=== PATIENT | male | born 1990 | race Caucasian/White ===

== ENCOUNTER 2025-09-29 22:00 | Emergency (ER) | payer SELFPAY ==
[2025-09-29 22:06] VITALS: BP 135/79; PULSE 76; RESP 16; TEMP 36.8; O2SAT 98; BMI 25.1
[2025-09-30 03:13] LABS: Hematocrit 44.8 % (37-53); Hemoglobin 15.00 g/dL (11.27-16.99); Mean Corpuscular HGB Conc 33.5 g/dL (30-55); Mean Corpuscular Hemoglobin 30.1 pg (27-33); Mean Corpuscular Volume 89.8 fl (82-101); Nucleated Red Blood Cells % 0 %; Platelet Count 336 10^3/cmm (157-399); Red Blood Count 4.99 10^6/uL (3.85-5.65); White Blood Count 7.48 10^3/uL (3.29-11.43)
[2025-09-30 03:25] VITALS: BP 118/81; PULSE 56; O2SAT 95
[2025-09-30 03:29] LABS: Alanine Aminotransferase 33 U/L (0-41); Albumin Level 4.8 g/dL (3.5-5.2); Alkaline Phosphatase 87 U/L (40-130); Anion Gap 13.1 (5-19); Aspartate Amino Transferase 26 U/L (0-40); Blood Urea Nitrogen 12 mg/dL (6-20); Calcium 9.3 mg/dL (8.5-10.5); Carbon Dioxide 28 mmol/L (22-29); Chloride 104 mmol/L (98-107); Creatinine Clr Calc Pharmacy 117.5848; Globulin 2.6 g/dL (1.3-4.6); Glucose 99 mg/dL (65-115); Lipase 132 U/L (13-60); Osmolality Calculated 292 mOsm/kg (285-295); Potassium 4.1 mmol/L (3.5-5.1); Sodium 141 mmol/L (136-145); Total Protein 7.4 g/dL (6.6-8.7)
[2025-09-30 03:34] LABS: Glucose Urine UA Negative (Normal); Nitrate Urine Negative (Negative); Specific Gravity, Urine 1.004 (1.005-1.030)
[2025-09-30 03:39] LABS: Add Urine Microscopic? YES
--- NOTE | 2025-09-30 04:03 | W.ED.GENADLT ---
HPI - General Adult General: Chief complaint: Abdominal Pain Stated complaint: Lower LT abd pain Time Seen by Provider: 09/30/25 03:08 History of Present Illness: Patient is a 35-year-old male presenting with a chief complaint of hernia on the left groin. He states this has been ongoing for approximately 1 year or more. He states that within the past several weeks, it has been bothering him more, popping out more often. 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 He has not had a fever, denies abdominal pain, nausea, vomiting. He has been having normal bowel movements without blood. He denies any difficulty urinating. He does not have any history of abdominal surgeries. Patient does not have a primary care physician, comes to the emergency department in hopes to have his hernia repaired today. Related Data Allergies Allergy/AdvReac Type Severity Reaction Status Date / Time No Known Allergies Allergy Verified 09/29/25 22:13 Physical Exam Narrative: EXAM NARRATIVE: Vital signs were reviewed. Patient is alert and oriented. Patient is breathing comfortably, no increased WOB or accessory muscle use. SpO2 is above 95% on RA. Patient has clear lungs b/l, no rhonchi, wheezing or crackles. No hypotension or tachycardia. Abdomen is soft, nondistended and nontender. There is a left groin hernia that is soft, nontender, reducible w/o overlying skin changes. Patient is moving all extremities, no deformity or gross injury. No lower extremity edema or asymmetry. Course Vital Signs: Vital signs: Vital Signs Temperature 98.2 F 09/29/25 22:06 Pulse Rate 56 L 09/30/25 03:25 Respiratory Rate 16 09/29/25 22:06 Blood Pressure 118/81 09/30/25 03:25 Pulse Oximetry 95 09/30/25 03:25 Oxygen Delivery Me thod Room Air 09/30/25 03:25 MDM - General Adult Medical Decision Making 35-year-old male presents with a chief complaint of left groin hernia for the past 1 year. He states that he has been needed to reduce it more often. Differential diagnosis includes, does limited to, left groin hernia, strangulated versus incarcerated hernia. Initial exam, patient is helically stable and nontoxic-appearing. He was evaluated lab work including CBC, CMP, lipase, UA. Patient has a normal white blood cell count, no electrolyte abnormalities, normal kidney function, liver function and only minimally elevated lipase. Exam is not consistent with pancreatitis given that epigastrium is not the location of pain and discomfort. UA does not demonstrate infection or hematuria. Clinically, hernia is not incarcerated or strangulated. Patient is appropriate for outpatient surgical consultation for elective surgical intervention. Patient was counseled on supportive care measures at home, given precautions and discharged in stable condition. Lab Data 09/30/25 03:04 09/30/25 03:04 Laboratory Results WBC 7.48 10^3/uL (3.29-11.43) 09/30/25 03:04 RBC 4.99 10^6/uL (3.85-5.65) 09/30/25 03:04 Hgb 15.00 g/dL (11.27-16.99) 09/30/25 03:04 Hct 44.8 % (37-53) 09/30/25 03:04 MCV 89.8 fl (82-101) 09/30/25 03:04 MCH 30.1 pg (27-33) 09/30/25 03:04 MCHC 33.5 g/dL (30-55) 09/30/25 03:04 RDW 13.0 % (12.1-15.1) 09/30/25 03:04 Plt Count 336 10^3/cmm (157-399) 09/30/25 03:04 MPV 9.1 fL (7.4-10.4) 09/30/25 03:04 Neut % (Auto) 50.9 % 09/30/25 03:04 Lymph % (Auto) 37.2 % 09/30/25 03:04 [place] % (Auto) 8.3 % 09/30/25 03:04 Eos % (Auto) 2.3 % 09/30/25 03:04 Baso % (Auto) 0.5 % 09/30/25 03:04 Neut # (Auto) 3.81 10^3/uL (1.8-7.7) 09/30/25 03:04 Lymph # (Auto) 2.8 10^3/uL (0.8-4.8) 09/30/25 03:04 [place] # (Auto) 0.6 10^3/uL (0.2-0.9) 09/30/25 03:04 Eos # (Auto) 0.2 10^3/uL (0.0-0.8) 09/30/25 03:04 Baso # (Auto) 0.0 10^3/uL (0.0-0.1) 09/30/25 03:04 Nucleated RBC % (auto) 0 % 09/30/25 03:04 Nucleated RBCs # 0.0 /100WBC 09/30/25 03:04 Sodium 141 mmol/L (136-145) 09/30/25 03:04 Potassium 4.1 mmol/L (3.5-5.1) 09/30/25 03:04 Chloride 104 mmol/L (98-107) 09/30/25 03:04 Carbon Dioxide 28 mmol/L (22-29) 09/30/25 03:04 Anion Gap 13.1 (5-19) 09/30/25 03:04 BUN 12 mg/dL (6-20) 09/30/25 03:04 Creatinine 0.9 mg/dL (0.7-1.2) 09/30/25 03:04 GFR Calculation 95.5 mL/min (90-130) 09/30/25 03:04 Glucose 99 mg/dL (65-115) 09/30/25 03:04 Calculated Osmolality 292 mOsm/kg (285-295) 09/30/25 03:04 Calcium 9.3 mg/dL (8.5-10.5) 09/30/25 03:04 Total Bilirubin 0.3 mg/dL (0.15-1.2) 09/30/25 03:04 AST 26 U/L (0-40) 09/30/25 03:04 ALT 33 U/L (0-41) 09/30/25 03:04 Alkaline Phosphatase 87 U/L (40-130) 09/30/25 03:04 Total Protein 7.4 g/dL (6.6-8.7) 09/30/25 03:04 Albumin 4.8 g/dL (3.5-5.2) 09/30/25 03:04 Globulin 2.6 g/dL (1.3-4.6) 09/30/25 03:04 Lipase 132 U/L (13-60) H 09/30/25 03:04 Urine Color Yellow (Yellow) 09/30/25 03:06 Urine Appearance Clear (CLEAR) 09/30/25 03:06 Urine pH 6.5 (5-7) 09/30/25 03:06 Ur Specific [place] 1.004 (1.005-1.030) L 09/30/25 03:06 Urine Protein Negative (Negative) 09/30/25 03:06 Urine Glucose (UA) Negative (Normal) 09/30/25 03:06 Urine Ketones Negative (Negative) 09/30/25 03:06 Urine Blood Negative (Negative) 09/30/25 03:06 Urine Nitrate Negative (Negative) 09/30/25 03:06 Urine Bilirubin Negative (Negative) 09/30/25 03:06 Urine Urobilinogen 0.2 mg/dL (Negative) 09/30/25 03:06 Ur Leukocyte Esterase Negative (Negative) 09/30/25 03:06 Urine RBC 0-2 /hpf (0-2) 09/30/25 03:06 Urine WBC 0-5 /hpf (0-5) 09/30/25 03:06 Ur Squamous Epith Cells 0-5 /hpf (0-5) 09/30/25 03:06 Amorphous Sediment Not Reportable 09/30/25 03:06 Urine Bacteria None seen /hpf (NONE) 09/30/25 03:06 Hyaline Casts 0.40 /lpf 09/30/25 03:06 No radiology studies performed this visit Discharge Plan Discharge Patient Disposition: Home Clinical Impression: Left groin hernia Condition: Stable Discharge Orders: Discharge ED (Routine); Ordered 09/30/25 Ordered By: Karla Miller Referrals: Sierra Burnette, GLOBAL LOGISTICS ANALYST-C [Family Provider, Family Practice] Patient Instructions: Abdominal Pain (ED), Opioid Safety, Pain Management, Patient Portal & Christopher Instructions Activity Restrictions/Additional Instructions: Please continue to monitor your condition closely at home. Take Ibuprofen 400mg and Tylenol 500-1000mg every six hours for pain and inflammation. If your condition worsens or additional concerns arise, please return promptly to the emergency department for reassessment. Follow up with a general surgeon on an outpatient basis to discuss elective hernia repair. Print Language: Nigerian Coding Level of Care Code ED Learning And Development Analyst for Jamarcus Srinivasan
--- NOTE | 2025-09-30 08:03 | DCPLANNER ---
Message sent to General Surgery-
== END 2025-09-30 04:35 | disposition home or self-care (01) ==
PROVIDERS: Emergency Provider Emergency Medicine; Family Provider Nurse Practitioner
DX: K45.8 Other specified abdominal hernia without obstruction or gangrene (principal)
CPT/HCPCS: 36415; 80053; 81001; 83690; 85025; 99283

== ENCOUNTER 2025-11-05 08:00 | Day surgery (SDC) | payer SELFPAY ==
[2025-11-05] VITALS (11 sets, daily range): BP systolic 96–143; BP diastolic 52–90; PULSE 62–93; RESP 15–21; TEMP 37–37.3; O2SAT 91–99; BMI 25.1
--- NOTE | 2025-11-05 08:35 | ANES.PREANE2 ---
Pre-Anesthetic Assessment Height/Weight: Height 5 ft 9 in Weight 170 lb Temp Pulse Resp BP Pulse Ox O2 Del Method 98.6 F 83 16 125/90 98 Room Air 11/05/25 08:17 11/05/25 08:17 11/05/25 08:17 11/05/25 08:17 11/05/25 08:17 11/05/25 08:17 Preop Diagnosis: Inguinal hernia Operation Date: 11/05/25 09:30 Proposed Procedures p OPEN LEFT Inguinal Hernia Repair with Mesh(Left) - Benny Payne MD Was Beta Jaycob taken within 24 hours: N/A Was Clonidine taken within 24 hours: N/A Last intake: Intake Last Liquid Date 11/05/25 Last Liquid Time 07:30 Last Solid Date 11/04/25 Last Solid Time 22:30 Social No alcohol and No tobacco Smokes marijuana Exam alert, oriented x 3, clear to auscultation bilaterally and regular rate & rhythm Airway Submandibular: within normal limits Cervical ROM: within normal limits Mallampati: Class III Comments: Comments: Extremely poor dentition, denies any loose teeth Anesthetic Plan ASA status: 2 Anesthesia: General and Regional (specify below) Other: No prior anesthesia history NPO since yesterday evening Smokes marijuana Denies any cardiac issues Patient states he has not been to a doctor since 2008 METs greater than 4 Plan for general anesthesia with possible peripheral nerve block in recovery Medications/Allergies Home Medications ?Medication ?Instructions ?Recorded ?Confirmed ?Last Taken ?Type No Known Home Medications 10/03/25 11/04/25 Unknown History Allergies Allergy/AdvReac Type Severity Reaction Status Date / Time No Known Allergies Allergy Verified 09/29/25 22:13 Current Medications Generic Name Dose Route Start Last Admin Trade Name Kylah PRN Reason Stop Dose Admin Sodium Chloride 1,000 mls @ 30 mls/hr 11/05/25 08:15 11/05/25 08:33 Sodium Chloride 0.9% IV 11/06/25 08:14 30 mls/hr .Q24H ROSE MARY Administration PFSH Anesthesia Social History Smoking and tobacco/nicotine status: never used tobacco/nicotine
--- NOTE | 2025-11-05 09:11 | W.PM.OPSUD ---
Surgery/Procedure H&P Update DATE OF PROCEDURE: November 05, 2025 DATE H&P PERFORMED: 10/13/25 H&P UPDATE INFORMATION: I have reviewed H&P completed within last 30 days, I have examined patient prior to procedure, No changes to prior documentation and Risks and benefits of the procedure reviewed CHANGES TO PREVIOUS DOCUMENTATION: Surgical site marked in preop with patient's input. I had an extensive discussion with the patient and answered all questions. I have discussed non operative/non procedural options and the patient still decides to proceed. Discussed risks and benefits of open left inguinal hernia repair with mesh and patient decides to proceed. Patient understands the risks include bleeding, infection, bladder injury, bowel injury, hernia recurrence, testicular ischemia, testicular atrophy. Patient understands that if colon is found to be part of the hernia contents the surgery might be aborted. PREOP DIAGNOSIS: Left Inguinal hernia PLANNED PROCEDURE: Operation Date: 11/05/25 09:30 Proposed Procedures p OPEN LEFT Inguinal Hernia Repair with Mesh(Left) - Benny Payne MD
[2025-11-05] MEDS: ceFAZolin 2,000 mg SDV 2000 MG IVP (09:48)
[2025-11-05] MEDS: BUPivacaine 0.25% INJ 10 mL 5 ML INJECTION (10:32)
[2025-11-05] MEDS: lidocaine-epi 1% 20 mL INJ 5 ML INJECTION (10:33)
--- NOTE | 2025-11-05 10:36 | PM.OP ---
Operative Report Date of procedure: November 05, 2025 Pre-op diagnosis: Left inguinal hernia Post-op diagnosis: same Post-op findings: Indirect left inguinal hernia. Hernia sac reduced into the abdomen and contained fat only. Resected small cord lipoma and sent to pathology. Repaired hernia defect using plug and patch mesh size medium. Procedure done: Open left inguinal hernia repair with mesh Implants: Plug and patch mesh size medium Specimens removed/disposition: Cord lipoma sent to pathology Pathology: Cord lipoma sent to pathology Surgeon: Benny Payne MD Airborne Electronics Analyst: N/A Anesthesia: General Estimated blood loss (mL): 10 Complications: N/A Findings: Indirect left inguinal hernia. Hernia sac reduced into the abdomen and contained fat only. Resected small cord lipoma and sent to pathology. Repaired hernia defect using plug and patch mesh size medium. Condition: stable Disposition: same day Brief History: 35-year-old male who presented with a symptomatic left inguinal hernia. Discussed risk benefits and patient agreed to proceed with left open inguinal hernia repair with mesh. Procedure: Patient brought to the OR and placed supine on the table. SCDs were placed and functioning. Preoperative ancef was administered. General anesthesia was induced. A murguia catheter was placed without any complications. The left groin was prepped and draped in the usual sterile fashion. Local infiltration at the surgical site was done using lidocaine/bupivacaine with epinephrine. A 5cm incision was carried out over the left inguinal canal. Tissue dissection was carried down to the external oblique fascia using electrocautery. The fascia was incised and the cord structures were identified. Cord structures were dissected off the hernia sac. I identified a medium sized indirect inguinal hernia. I resected a small cord lipoma which was sent to pathology. The hernia sac was dissected and reduced into the abdomen. The hernia sac contained fat only. The plug was placed at the site of the deep inguinal ring and the posterior wall of the inguinal canal was reinforced using a mesh patch. The plug was fixed using 2-0 ethibond to the cojoint ligament and inguinal ligament with interrupted sutures. The mesh patch was sutured to the cojoint tendon and the inguinal ligament using interrupted sutures with 2-0 ethibond. The external oblique fascia was closed using 3-0 vicryl. Skin was closed using 4-0 monocryl and surgical glue. Murguia was removed. The patient woke up from anesthesia and was transferred to PACU without any complications. Fluffs and a jockstrap was applied.
[2025-11-05] MEDS: oxyCODONE 5 mg IR Tab/Cap PO (11:36)
--- NOTE | 2025-11-05 12:33 | ANE.PACU2 ---
Inpatient post-anesthesia follow up: Airway intact: Yes Vital signs: Temperature 99 F Pulse Rate 93 Respiratory Rate 18 Blood Pressure 142/84 Pulse Oximetry 98 Oxygen Delivery Me thod Room Air Oxygen Flow Rate 10 Fraction of Inspir ed Oxygen Hydration adequate: Yes Nausea and vomiting: No Pain level: 1 Mental status: Baseline
--- NOTE | 2025-11-10 10:16 | W.PM.OPSFHP ---
Same Day Surgery H&P Indication for Procedure/HPI DATE OF PROCEDURE: November 10, 2025 CHIEF COMPLAINT/INDICATIONFOR SURGICAL PROCEDURE: left inguinal hernia PREOP DIAGNOSIS: Left Inguinal hernia PLANNED PROCEDURE: Operation Date: 11/05/25 09:30 Proposed Procedures p OPEN LEFT Inguinal Hernia Repair with Mesh(Left) - Benny Payne MD Medications/Allergies* Allergies/Adverse Reactions Allergy/AdvReac Type Severity Reaction Status Date / Time No Known Allergies Allergy Verified 09/29/25 22:13 Pertinent History/Comorbid Conditions* Social History Smoking and tobacco/nicotine status: never used tobacco/nicotine Pertinent Exam Findings alert, oriented x 3, clear to auscultation bilaterally, regular rate & rhythm and procedure specific exam findings abdomen soft, nt, nd left inguinal hernia present Recommendations Risks and benefits of procedure reviewed and Patient/family agree to proceed Surgery/Procedure today Coding Level of Care Code Acute Code for Chg Fwd
== END 2025-11-05 12:33 | disposition home or self-care (01) ==
PROVIDERS: Family Provider Nurse Practitioner; Visit Provider Student in an Organized Health Care Education/Training Program
PROC: (CPT 49505; principal; 2025-11-05 09:20)
DX: D17.6 Benign lipomatous neoplasm of spermatic cord (principal)
CPT/HCPCS: 49505; 88304; C1781; J0690; J2250; J2405; J2704; J3010; J3490; J7030; J9999